=== PATIENT | male | born 1980 | race Caucasian/White ===

== ENCOUNTER 2023-01-11 06:49 | Day surgery (SDC) | payer OTHER ==
[~2023-01-11] VITALS: Ht 177.8 cm; Wt 91.0 kg
[~2023-01-11 06:49] MED LIST: HYDROCODON-ACE1 EA10 PO; ISONIAZID300 MG PO; REMERON30 MG PO; STOOL SOFTENER250 MG PO; VITAMIN B-650 M1 PO
[2023-01-11 07:25] VITALS: BP 140/94
[2023-01-11] MEDS ORDERED: HYDROCODON-ACE1 EA11 PO (10:27)
[2023-01-11 10:50] VITALS: BP 119/79
--- NOTE | 2023-01-11 10:54 | OR ---
[facility] [address] [place], [place] [address] Signed DATE OF OPERATION: 01/11/2023 SURGEON: Negra Mcgrath MD PREOPERATIVE DIAGNOSIS: Right tibia fracture, midshaft. POSTOPERATIVE DIAGNOSIS: Right tibia fracture, midshaft. PROCEDURE PERFORMED: Closed reduction and internal medullary fixation, right tibia. CONSUMER INSIGHT ANALYST: None. ANESTHESIA: Spinal. BLOOD LOSS: 75 mL. TOURNIQUET TIME: Zero. IMPLANT: 9.3 x 320 Biomet IM lavern with two locking screws. BRIEF HISTORY: Forest is a 42-year-old gentleman, who was [facility]. He sustained a slightly comminuted displaced tibia fracture. Risks and benefits of operative treatment were discussed with him and he elected to proceed. DESCRIPTION OF PROCEDURE: Once consent was obtained, he was taken to the operating room. After adequate anesthesia, he was placed on the operating room table with a right hip bump. The leg was prepped and draped in a standard sterile fashion. No tourniquet was placed. The knee was approached through a standard parapatellar approach medially. This was carried through the skin and subcutaneous tissue. The curved awl was then used to enter the proximal tibia at the anterior superior margin. This was taken down into the shaft of Electronically Signed By: NEGRA MCGRATH MD 01/11/23 1054 PATIENT NAME: MUKUL DELACRUZ OPERATIVE REPORT DATE OF : 82 REPORT #: [id number] PHYSICIAN: NEGRA MCGRATH MD PCP: MARISELA MCBRIDE [facility] REPORT IS CONFIDENTIAL AND NOT TO BE RELEASED WITHOUT AUTHORIZATION [facility] [address] [place], [place] [address] Signed the tibia. The awl was removed and the ball-tipped guide lavern was then advanced from the starter hole distally. The fracture was displaced and we were unable to close or reduce it secondary to the fibula being intact. We then introduced a percutaneous tenaculum and reduced the fracture anatomically. The guide lavern was then passed across the fracture down into a center-center position distally. The guide lavern was then over-reamed 1st with an 8 followed by 9, then a 10 mm reamer. Minimal chatter was obtained throughout. The reamer was removed and the tibia was measured to a 320. We then placed the 320 over the guide lavern and advanced it to the fracture. Again, the fracture was anatomically reduced, so it was easy to pass the lavern into the distal extent of the fracture. The distal interlocking screw was placed using perfect circles technique. The proximal interlocking screw was placed through the jig. The final radiograph showed anatomic reduction, good placement of the lavern and screw lengths. The insertion guide was removed and the wound was cleansed with Surgiphor and normal saline. The arthrotomy was closed using #1 Vicryl, subcutaneous with 0 Stratafix, the skin with mario throughout. He tolerated the procedure well. All wounds were dressed with Allevyn and ABDs and Vincent wrap. He was taken to the recovery room in satisfactory condition. All sponge, needle, and instrument counts were correct. Negra Mcgrath MD BA/MODL /[id number] Copies: ~ Electronically Signed By: NEGRA MCGRATH MD 01/11/23 1054 PATIENT NAME: MUKUL DELACRUZ SANJU OPERATIVE REPORT DATE OF : 82 REPORT #: [id number] PHYSICIAN: NEGRA MCGRATH MD PCP: MARISELA MCBRIDE REPORT IS CONFIDENTIAL AND NOT TO BE RELEASED WITHOUT AUTHORIZATION
[2023-01-11 12:14] VITALS: BP 129/90
[2023-01-11 13:11] VITALS: BP 128/82
== END 2023-01-11 13:20 | disposition home or self-care (01) ==
LOC: DS 06:49
PROVIDERS: ATTEND Specialist
PROC: 3E0T3BZ Introduction of Anesthetic Agent into Peripheral Nerves and Plexi, Percutaneous Approach (ICD-10-PCS; 2023-01-11)
PROC: 0QSG06Z Reposition Right Tibia with Intramedullary Internal Fixation Device, Open Approach (ICD-10-PCS; principal; 2023-01-11 09:00)
DX: S82.201A Unspecified fracture of shaft of right tibia, initial encounter for closed fracture (principal); W51.XXXA Accidental striking against or bumped into by another person, initial encounter; Y93.66 Activity, soccer
CPT/HCPCS: 01480; 36415; 64445; 64447; 73590; 76942; 80048; 85025; A9270; C1713; J0131; J0690; J1100; J2001; J2250; J2704; J2795; J3490; J7121